=== PATIENT | female | born 1965 | race Caucasian/White ===

== ENCOUNTER 2025-09-05 12:07 | Emergency (ER) | payer OTHER ==
[2025-09-05] MEDS: Ondansetron 4 MG Tab.DIS PO ONE (12:22)
[2025-09-05] MEDS: Acetaminophen/HYDROcodone 325-5 MG Tab PO STA (12:23)
== END 2025-09-05 14:10 | disposition home or self-care (01) ==
LOC: JD.ED 12:07
DX: S46.911A Strain of unspecified muscle, fascia and tendon at shoulder and upper arm level, right arm, initial encounter (principal); M62.830 Muscle spasm of back; M48.07 Spinal stenosis, lumbosacral region; G89.29 Other chronic pain; M65.221 Calcific tendinitis, right upper arm; V49.59XA Passenger injured in collision with other motor vehicles in traffic accident, initial encounter; Y93.89 Activity, other specified
CPT/HCPCS: 72131; 73030; 99284; A9270